=== PATIENT | female | born 1960 | race African-American/Black ===

== ENCOUNTER 2016-03-14 10:38 | Emergency (ER) | payer BC ==
[~2016-03-14] VITALS: Ht 157.5 cm; Wt 122.5 kg
[2016-03-14] MEDS ORDERED: SINGULAIR10 MG ORAL (10:57)
[2016-03-14] MEDS ORDERED: ALBUTEROL2.5 MG/3 M INH (10:57)
[2016-03-14] MEDS ORDERED: QVAR7.3 GM INH (10:57)
[2016-03-14] MEDS ORDERED: HYDROCODON-ACE1 EA15 ORAL (10:57)
[2016-03-14] MEDS ORDERED: NORCO 5-325 TA1 EACH ORAL (11:26)
[2016-03-14] MEDS ORDERED: COLACE100 MG ORAL (11:26)
[2016-03-14] MEDS ORDERED: Norco 5mg/325mg tab ORAL ONE (11:30)
--- NOTE | 2016-03-14 12:19 | Emergency Room Report ---
History of Present Illness General Chief Complaint: Lower Extremity Injury Source: Patient Present Illness HPI Patient presents with acute pain in the left hip region. She states that there is been no fall or traumatic event. But that there is a sharp pain in her left hip which occurs with ambulation and weightbearing. She had a similar process occur possibly a year back for which he did receive x-rays and possibly CT scan but she was told that there was no significant findings at that time. She reports that she does not followup with her primary care very often and that most of her care is received at urgent care is an emergency room. No distal numbness or tingling pain with ambulation which is reported is severe refractory to Naprosyn which is a medication she normally takes. Allergies: Coded Allergies: No Known Allergies (Unverified , 10/23/15) Patient History Past Medical History: see triage record, old chart reviewed Past Surgical History: none Pertinent Family History: none Social History: Denies: alcohol use, drug use, smoking : 3 Para: 2 Immunizations: UTD Reviewed Nursing Documentation: PMH: Agreed Nursing Documentation-PMH Hx Hypertension: Yes Hx Asthma: Yes Review of Systems Musculoskeletal: Reports: joint pain, muscle pain, Denies: back pain All Other Systems: negative except mentioned in HPI Physical Exam Vital Signs Date Time Temp Pulse Resp B/P Pulse Ox O2 Delivery O2 Flow Rate FiO2 03/14/16 10:44 98.1 77 16 114/78 95 Room Air Sp02 EP Interpretation: reviewed, normal General Appearance: normal inspection, well appearing, no apparent distress, alert, other - morbidly obese woman Head: atraumatic Eyes: bilateral eye normal inspection ENT: normal ENT inspection, hearing grossly normal, normal voice Neck: normal inspection, full range of motion, supple, no bony tend Respiratory: normal inspection, lungs clear, normal breath sounds, no respiratory distress, no retraction, no wheezing Cardiovascular #1: regular rate, rhythm, no edema Gastrointestinal: normal inspection, normal bowel sounds, non tender, soft, no guarding, no hernia Genitourinary: no CVA tenderness Musculoskeletal: back normal, normal range of motion, other - pain with palpation aft inguinal crease, able to move andthe leg without difficulty passively on the left. Pain with laying on her left side transmitted to the left hip. Pain with axial loading of the left hip. Neurologic: normal inspection, alert, responsive, speech normal Psychiatric: normal inspection, judgement/insight normal, mood/affect normal Skin: normal inspection, normal color, no rash Medical Decision Making Diagnostic Impression: Primary Impression: hip arthritis ER Course This is a pleasant 56-year-old female who is morbidly obese presenting with sharp pain in the left hip without history of gout, rheumatoid, trauma, infection or IV drug use. My exam to me indicates likely hip arthritis. Patient was in some pain control the ER. X-rays will be obtained to determine findings. Patient will likely require followup with her primary DrKatlyn as well as may benefit from weight loss as well as a walker and/or cane for support. pain has improved significantly after some [place] in the ER. She is able to ambulate on her leg with only minor antalgia. we'll provide X-rays show no significant fracture in frankly not a significant amount of DJD there is a linear opacification, noted, which I reexamined the patient and there is no history of penetrating injury nor is there any obvious indication of wound or needle or anything to suggest other than artifact. provided orthopedic referral as well as recommendations for followup with primary a cd's for for x-ray copies. Other X-Ray Diagnostic Results Other X-Ray Diagnostic Results : X-Ray Ordered: hip and pelvis Date: Mar 14, 2016 Time: 13:33 EP Interpretation: No Findings: no fractures, no dislocation, no soft tissue swelling, other - linear hyperlucency in the thigh on the left Number of Views: 3 Reevaluation Time: 13:35 Last Vital Signs Date Time Temp Pulse Resp B/P Pulse Ox O2 Delivery O2 Flow Rate FiO2 03/14/16 10:44 98.1 77 16 114/78 95 Room Air Status: improved Disposition: HOME, SELF-CARE Condition: Improved Scripts Docusate Sodium* (COLACE*) 100 Mg Capsule 100 MG ORAL DAILY for 14 Days, #14 CAP Prov: Shiraz Carvajal MD 03/14/16 Hydrocodone Bit/Acetaminophen 5-325* (NORCO 5-325*) 1 Each Tablet 1 TAB ORAL Q6H Y for For Pain, #20 TAB 0 Refills Prov: Shiraz Carvajal MD 03/14/16 Referrals: BENNY CARLISLE Patient Instructions: Hip Pain Additional Instructions: these followup with your primary doctor, aas well as referred orthopedist Shiraz Carvajal MD Mar 14, 2016 12:19
[2016-03-14 13:59] VITALS: BP 117/68
--- NOTE | 2016-03-15 10:10 | Diagnostic Imaging Report ---
Indications: Pelvic and left hip pain Technique: AP pelvis, 2 views left hip Findings: Comparison: None. No fracture, dislocation, lytic destruction, periosteal reaction, surrounding soft tissue swelling, or other acute changes are demonstrated. No deformity, alignment abnormality, arthritic change, soft tissue calcification, or other chronic changes are demonstrated. IMPRESSION: Negative pelvic and left hip radiographs.
== END 2016-03-14 14:01 | disposition home or self-care (01) ==
LOC: EMR 11:53
DX: M16.12 Unilateral primary osteoarthritis, left hip (principal); I10 Essential (primary) hypertension; J45.909 Unspecified asthma, uncomplicated; E66.01 Morbid (severe) obesity due to excess calories
CPT/HCPCS: 72170; 73502; 99284